=== PATIENT | female | born 1960 | race Caucasian/White ===

== ENCOUNTER 2018-08-21 17:09 | Emergency (ER) | payer MEDICAID ==
[~2018-08-21] VITALS: Ht 157.5 cm; Wt 58.5 kg
[2018-08-21 17:21] VITALS: Ht 157.5 cm; Wt 58.5 kg
[2018-08-21 19:20] LABS: BASOPHIL % 0.7 % (0-2); PLATELET COUNT 288 x10^3mcL (130-400)
[2018-08-21 19:28] LABS: CALCIUM 9.4 mg/dL (8.5-10.1); CARBON DIOXIDE 27.2 mmol/L (21-32); CHLORIDE SERUM 101 mmol/L (98-107); CREATININE SERUM 0.9 mg/dL (0.6-1.0); GFR1 > 60 mL/min; GLUCOSE SERUM 92 mg/dL (74-106); POTASSIUM SERUM 3.7 mmol/L (3.5-5.1); SODIUM SERUM 136 mmol/L (136-145)
[2018-08-21 19:29] LABS: RED CELL DISTRIBUTION WIDTH 15.2 % (11.5-14.5)
[2018-08-21 19:35] LABS: ALBUMIN 4.3 g/dL (3.4-5.0); ALKALINE PHOSPHATASE 105 U/L (46-116); ALT/SGPT 48 U/L (14-59); AST/SGOT 26 U/L (15-37); BILIRUBIN TOTAL 0.6 mg/dL (0.20-1.00); LIPASE 163 IU/L (73-393); TOTAL PROTEIN, SERUM 8.7 g/dL (6.4-8.2)
[2018-08-21 20:01] VITALS: BP 133/75
== END 2018-08-21 20:01 | disposition home or self-care (01) ==
LOC: ED 17:09
PROVIDERS: Emergency Medicine
DX: K80.80 Other cholelithiasis without obstruction (principal); Z98.890 Other specified postprocedural states
CPT/HCPCS: J1885

== ENCOUNTER 2018-09-08 16:34 | Inpatient (IN) | payer MEDICAID ==
[~2018-09-08] VITALS: Ht 157.5 cm; Wt 57.8 kg
[2018-09-08 16:43] VITALS: Ht 157.5 cm; Wt 57.8 kg
[2018-09-08 17:16] LABS: BASOPHIL % 0.8 % (0-2); CALCIUM 9.3 mg/dL (8.5-10.1); CARBON DIOXIDE 23.9 mmol/L (21-32); CHLORIDE SERUM 103 mmol/L (98-107); GFR1 > 60 mL/min; GLUCOSE SERUM 107 mg/dL (74-106); PLATELET COUNT 317 x10^3mcL (130-400); POTASSIUM SERUM 3.3 mmol/L (3.5-5.1); SODIUM SERUM 138 mmol/L (136-145)
[2018-09-08 17:18] LABS: RED CELL DISTRIBUTION WIDTH 15.4 % (11.5-14.5)
[2018-09-08 17:21] LABS: ALBUMIN 3.9 g/dL (3.4-5.0); ALKALINE PHOSPHATASE 112 U/L (46-116); ALT/SGPT 64 U/L (14-59); AST/SGOT 33 U/L (15-37); BILIRUBIN TOTAL 0.5 mg/dL (0.20-1.00); LIPASE 157 IU/L (73-393)
[2018-09-08 17:24] LABS: TOTAL PROTEIN, SERUM 8.3 g/dL (6.4-8.2)
[2018-09-08 19:29] LABS: microscopic required? NO
[2018-09-08 19:39] LABS: UA SPECIFIC GRAVITY 1.015 (1.005-1.035); urine erythrocyte NEGATIVE (NEGATIVE)
[2018-09-08 19:50] LABS: AMYLASE 55 U/L (25-115); MAGNESIUM 2.2 mg/dL (1.8-2.4); PHOSPHOROUS 4.8 mg/dL (2.5-4.9)
[2018-09-08 19:51] LABS: AMPHETAMINE QUAL UR NONE DETECTED (See below)
[2018-09-08 19:52] LABS: CHOLESTEROL 251 mg/dL (<200); CHOLESTEROL/HDL RATIO 11.4; HDL CHOLESTEROL 22 mg/dL (40-60); TRIGLYCERIDES 577 mg/dL (<150)
[2018-09-08 19:57] LABS: T3 TOTAL 1.12 ng/mL
[2018-09-08 20:03] LABS: FREE T4 1.14 ng/dL (0.76-1.46); FREE THYROXINE INDEX 2.9 ug/dL (1.4-4.5); T4(THYROXINE) 9.5 ug/dL (4.7-13.3)
[2018-09-08 20:20] VITALS: BP 147/77
[2018-09-09 05:30] VITALS: BP 109/55
[2018-09-09 06:19] LABS: BASOPHIL % 0.6 % (0-2); PLATELET COUNT 262 x10^3mcL (130-400)
[2018-09-09 06:36] LABS: RED CELL DISTRIBUTION WIDTH 15.3 % (11.5-14.5)
[2018-09-09 06:48] VITALS: BP 109/55
[2018-09-09 06:48] LABS: CALCIUM 8.5 mg/dL (8.5-10.1); CARBON DIOXIDE 25.5 mmol/L (21-32); CHLORIDE SERUM 106 mmol/L (98-107); CREATININE SERUM 0.9 mg/dL (0.6-1.0); GFR1 > 60 mL/min; GLUCOSE SERUM 95 mg/dL (74-106); SODIUM SERUM 139 mmol/L (136-145)
[2018-09-09 09:55] VITALS: BP 110/57
[2018-09-09 17:14] VITALS: BP 119/64
[2018-09-09 20:37] VITALS: BP 136/65
[2018-09-10 05:27] VITALS: BP 138/72
[2018-09-10 06:38] LABS: CALCIUM 8.6 mg/dL (8.5-10.1); CARBON DIOXIDE 26.4 mmol/L (21-32); CHLORIDE SERUM 104 mmol/L (98-107); CREATININE SERUM 0.9 mg/dL (0.6-1.0); GFR1 > 60 mL/min; GLUCOSE SERUM 81 mg/dL (74-106); POTASSIUM SERUM 3.5 mmol/L (3.5-5.1); SODIUM SERUM 139 mmol/L (136-145)
[2018-09-10 07:27] LABS: BASOPHIL % 0.6 % (0-2); PLATELET COUNT 261 x10^3mcL (130-400); RED CELL DISTRIBUTION WIDTH 15.3 % (11.5-14.5)
[2018-09-10 10:34] VITALS: BP 118/69
[2018-09-10 11:28] VITALS: BP 134/67
[2018-09-10] MEDS ORDERED: CIPRO500 MG PO (14:36)
[2018-09-10] MEDS ORDERED: IBUPROFEN400 MG PO (14:37)
[2018-09-10] MEDS ORDERED: NORCO1 TA2 PO (14:37)
[2018-09-10 15:48] VITALS: BP 107/53
[2018-09-10 18:49] VITALS: BP 113/65
[2018-09-10 21:13] VITALS: BP 107/64
[2018-09-11 05:37] VITALS: BP 108/61
[2018-09-11 07:16] LABS: CALCIUM 8.5 mg/dL (8.5-10.1); CARBON DIOXIDE 23.3 mmol/L (21-32); CHLORIDE SERUM 104 mmol/L (98-107); GFR1 > 60 mL/min; GLUCOSE SERUM 101 mg/dL (74-106); POTASSIUM SERUM 3.5 mmol/L (3.5-5.1); SODIUM SERUM 140 mmol/L (136-145)
[2018-09-11 07:28] VITALS: BP 108/61
[2018-09-11 07:34] LABS: BASOPHIL % 0.2 % (0-2); PLATELET COUNT 252 x10^3mcL (130-400)
[2018-09-11 07:35] LABS: RED CELL DISTRIBUTION WIDTH 15.3 % (11.5-14.5)
[2018-09-11 09:43] VITALS: BP 124/55
== END 2018-09-11 11:00 | disposition home or self-care (01) | DRG 263 ==
LOC: ED 16:34 → MU 19:00
PROVIDERS: Emergency Medicine; Family Medicine; Family Medicine Addiction Medicine; Internal Medicine
PROC: 0FT44ZZ Resection of Gallbladder, Percutaneous Endoscopic Approach (ICD-10-PCS; principal; 2018-09-10 13:00)
DX: K80.12 Calculus of gallbladder with acute and chronic cholecystitis without obstruction (principal); E66.9 Obesity, unspecified; E87.6 Hypokalemia; J98.11 Atelectasis; K59.00 Constipation, unspecified; E78.00 Pure hypercholesterolemia, unspecified; E78.5 Hyperlipidemia, unspecified; J44.9 Chronic obstructive pulmonary disease, unspecified; K57.30 Diverticulosis of large intestine without perforation or abscess without bleeding; Z68.23 Body mass index [BMI] 23.0-23.9, adult
CPT/HCPCS: 82962; 83880; 84439; 94150; J0330; J1170; J1885; J2001; J2175; J2250; J2270; J2405; J2543; J2704; J2710; J3010; J3490; J7030; J7120; Q0092; Q9966; Q9967